=== PATIENT | female | born 1975 ===

== ENCOUNTER 2016-09-04 08:40 | Day surgery (SDC) | payer OTHER ==
[2016-09-04] MEDS ORDERED: Lactated Ringer's 500 ML IV ONE (09:14)
[2016-09-04 09:16] VITALS: TEMP 97
[2016-09-04] MEDS ORDERED: Midazolam 2 MG/2 ML VIAL ONE (09:45)
[2016-09-04] MEDS ORDERED: Propofol 10 mg/ml Inj (20 ML) ONE (09:45)
[2016-09-04 10:26] VITALS: BP 100/60; PULSE 73; RESP 14; O2SAT 98
== END 2016-09-04 10:34 | disposition home or self-care (01) ==
LOC: H.ENDO 08:40
PROVIDERS: ATTEND Internal Medicine Gastroenterology
DX: R10.31 Right lower quadrant pain (principal); K64.8 Other hemorrhoids